=== PATIENT | female | born 1975 ===

== ENCOUNTER 2017-10-17 01:24 | Emergency (ER) | payer MEDICAID ==
[2017-10-17 01:25] VITALS: BMI 29.9
[2017-10-17 01:40] VITALS: O2SAT 98
[2017-10-17] MEDS ORDERED: Albuterol 0.083% Inhal Sol (2.5 mg/3 mL) UD INH STA (02:08)
[2017-10-17] MEDS ORDERED: Albuterol-Ipratrop 3 mg / 0.5 (3 ml) UD IH STA (02:08)
[2017-10-17] MEDS ORDERED: Albuterol-Ipratrop 3 mg / 0.5 (3 ml) UD ONE (02:35)
[2017-10-17] MEDS ORDERED: Albuterol 0.083% Inhal Sol (2.5 mg/3 mL) UD ONE (02:35)
--- NOTE | 2017-10-17 04:25 | C.PDOC ---
History Of Present Illness 41 year old female presents to the ED c/o flue lie symptoms, cough, and SOB for the past 2 days. Patient states she was diagnosed with asthma as a child, but has not experience asthma attacks as an adult. Patient is actively wheezing on examination. Patient denies fever, chills, nausea, vomit, diarrhea, sick contacts, recent travel. Time Seen by Provider: 10/17/17 01:42 Chief Complaint (Nursing): Flu-like Symptoms History Per: Patient History/Exam Limitations: no limitations Onset/Duration Of Symptoms: Days Current Symptoms Are (Timing): Still Present Location Of Pain: Throat Sick Contacts (Context): None Associated Symptoms: Cough Ear Symptoms: Bilateral: None Severity: None Recent travel outside of the [place]: No Additional History Per: Patient Past Medical History Reviewed: Historical Data, Nursing Documentation, Vital Signs Vital Signs: Last Vital Signs Temp 97.9 F 10/17/17 04:39 Pulse 79 10/17/17 04:39 Resp 18 10/17/17 04:39 BP 108/71 10/17/17 04:39 Pulse Ox 98 10/17/17 05:07 - Medical History PMH: Asthma, Migraine Denies: Chronic Kidney Disease Surgical History: Cholecystectomy - [facility] BUNIONECT/SFT/OSTEOTOMY (01/24/13) REPAIR OF HAMMER TOE (01/21/15) Family History: States: Unknown Family Hx - Social History Hx Alcohol Use: Yes Hx Substance Use: No - Immunization History Hx Tetanus Toxoid Vaccination: No Hx Influenza Vaccination: No Hx Pneumococcal Vaccination: No Review Of Systems Constitutional: Negative for: Fever, Chills ENT: Positive for: Nose Congestion. Negative for: Nose Discharge Respiratory: Positive for: Cough, Shortness of Breath Gastrointestinal: Negative for: Nausea, Vomiting, Abdominal Pain Genitourinary: Negative for: Dysuria Skin: Negative for: Rash Neurological: Negative for: Weakness, Numbness Physical Exam - Physical Exam Appears: Non-toxic, No Acute Distress Skin: Normal Color, Warm, Dry Head: Atraumatic, Normacephalic Eye(s): bilateral: Normal Inspection Nose: No Discharge Oral Mucosa: Moist Throat: Normal, No Erythema, No Exudate Neck: Normal ROM, Supple Chest: Symmetrical Cardiovascular: Rhythm Regular, No Murmur Respiratory: Normal Breath Sounds, No Rales, No Rhonchi, No Wheezing Gastrointestinal/Abdominal: Soft, No Tenderness, No Guarding, No Rebound Extremity: Normal ROM, No Tenderness, No Swelling Neurological/Psych: Oriented x3 Gait: Steady ED Course And Treatment O2 Sat by Pulse Oximetry: 98 (On RA) Pulse Ox Interpretation: Normal - Radiology CXR: Interpreted by Me, Viewed By Me CXR Interpretation: No: No Acute Disease, Infiltrates Medical Decision Making Medical Decision Making: Impression: flu like symptoms Plan: * CXR * Albuterol 2.3 mg INH * Zithromax 500 mg PO * Prednisone 60 mg PO * Nebulizer treatment * Influenza A B test * * On re-evaluation patient feels better and is stable to be d/c home with PMD/ clinic follow up. Disposition - Disposition Disposition: HOME/ ROUTINE Disposition Time: 04:22 Condition: IMPROVED Additional Instructions: Follow up with PMD within 1-2 days. Return to ED if feel worse. 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 - Scribe Statement The provider has reviewed the documentation as recorded by the Scribe Johnathan Kaur All medical record entries made by the Scribe were at my direction and personally dictated by me. I have reviewed the chart and agree that the record accurately reflects my personal performance of the history, physical exam, medical decision making, and the department course for this patient. I have also personally directed, reviewed, and agree with the discharge instructions and disposition.
[2017-10-17 04:40] VITALS: BP 108/71; PULSE 79; RESP 18; TEMP 97.9
--- NOTE | 2017-10-17 08:39 | RAD ---
HISTORY: cough/wheezing COMPARISON: No prior. TECHNIQUE: Chest PA and lateral FINDINGS: LUNGS: No active pulmonary disease. PLEURA: No significant pleural effusion identified. No pneumothorax apparent. CARDIOVASCULAR: Normal. OSSEOUS STRUCTURES: No significant abnormalities. VISUALIZED UPPER ABDOMEN: Normal. OTHER FINDINGS: None. IMPRESSION: No active disease.
== END 2017-10-17 04:50 | disposition home or self-care (01) ==
LOC: C.ER 01:24
DX: J40 Bronchitis, not specified as acute or chronic (principal)